=== PATIENT | female | born 1985 | race American Indian/Alaskan Native ===

== ENCOUNTER 2019-01-09 22:28 | Emergency (ER) | payer OTHER ==
[2019-01-09 23:55] LABS: Basophils % (Auto) 0.4 % (0.0-1.8); Eosinophils # (Auto) 0.2 K/mm3 (0.0-0.4); Hematocrit 33.3 % (30.3-42.9); Hemoglobin 11.4 gm/dl (10.1-14.3); Lymphocytes # (Auto) 2.2 K/mm3 (1.2-5.4); Lymphocytes % (Auto) 27.7 % (13.4-35.0); Mean Corpuscular HGB Conc 34 % (30-34); Mean Corpuscular Volume 91 fl (79-97); Monocytes # (Auto) 0.4 K/mm3 (0.0-0.8); Monocytes % (Auto) 5.3 % (0.0-7.3); Platelet Count 359 K/mm3 (140-440); Red Blood Count 3.66 M/mm3 (3.65-5.03); Red Cell Distribution Width 13.1 % (13.2-15.2)
[2019-01-10 00:09] LABS: Bilirubin,Urine NEG (Negative); Blood,Urine NEG (Negative); Color,Urine Straw (Yellow); Mucus,Urine FEW /HPF; Protein,Urine <15 mg/dL mg/dL (Negative); Urobilinogen,Urine < 2.0 mg/dL (<2.0); WBC,Urine < 1.0 /HPF (0.0-6.0)
--- NOTE | 2019-01-10 02:57 | Ultrasound Report ---
PROCEDURE: US OB >= 14 WEEKS FETUS TECHNIQUE: Real-time transabdominal sonography of the uterus, placenta, amniotic fluid, adnexa, and fetus was performed with image documentation. Measurements were obtained to determine age/size. M-mode Doppler was used to document heartbeat. ADDITIONAL GESTATION: None HISTORY: abdominal pain COMPARISONS: None. FINDINGS: MATERNAL: Uterus and cervix: The cervix is closed measures 5 cm in length. Adnexa and ovaries: There is a fibroid in the anterior myometrium this or centimeters. There is a fib roid in the lower uterine segment measuring up to 24 mm. The right ovary cyst measures up to 2 cm.. IUP: Single live intrauterine gestation. Position: Cephalic Placental position: Anterior, without previa . Amniotic fluid volume Normal. Cardiac activity: Regular rhythm at 142 bpm. ANATOMY: Face/lips/nose: Normal. Cerebral ventricles: Normal. Cisterna magna/cerebellum: Normal. Heart: Normal. Stomach: Normal. Umbilical cord: 3 vessel umbilical cord with normal insertion. Kidneys: Normal. Bladder: Normal. Spine: Spine is not well-visualized. Extremities: Normal. BIOMETRY: Biparietal diameter: 4.5 cm. Head circumference: 16.4 cm. abdominal circumference: 13.1 cm. Femur length: 3.1 cm. Ratio biometry: Normal . Estimated Weight: 322 grams Mean Gestational Age (composite criteria) based on today's measurements: 19 weeks 5 days. Estimated Due Date (earliest scan): 06/01/2019. IMPRESSION: Single live intrauterine gestation at 19 weeks 5 days. Estimated due date: 06/01/2019. No anatomic abnormality. This document is electronically signed by Chyna Kraus DO., January 10 2019 02:56:08 AM ET
--- NOTE | 2019-01-10 02:58 | Ultrasound Report ---
PROCEDURE: US OB TRANSVAGINAL TECHNIQUE: Real-time transabdominal and transvaginal sonography of the uterus, placenta, amniotic fl uid, adnexa, and fetus was performed with image documentation. Measurements were obtained to determin e age/size. M-mode Doppler was used to document heartbeat. ADDITIONAL GESTATION: None HISTORY: abdominal pain COMPARISONS: None. FINDINGS: MATERNAL: Uterus and cervix: The cervix is closed measures 5 cm in length. Adnexa and ovaries: There is a fibroid in the anterior myometrium this or centimeters. There is a fib roid in the lower uterine segment measuring up to 24 mm. The right ovary cyst measures up to 2 cm.. IUP: Single live intrauterine gestation. Position: Cephalic Placental position: Anterior, without previa . Amniotic fluid volume Normal. Cardiac activity: Regular rhythm at 142 bpm. ANATOMY: Face/lips/nose: Normal. Cerebral ventricles: Normal. Cisterna magna/cerebellum: Normal. Heart: Normal. Stomach: Normal. Umbilical cord: 3 vessel umbilical cord with normal insertion. Kidneys: Normal. Bladder: Normal. Spine: Spine is not well-visualized. Extremities: Normal. BIOMETRY: Biparietal diameter: 4.5 cm. Head circumference: 16.4 cm. abdominal circumference: 13.1 cm. Femur length: 3.1 cm. Ratio biometry: Normal . Estimated Weight: 322 grams Mean Gestational Age (composite criteria) based on today's measurements: 19 weeks 5 days. Estimated Due Date (earliest scan): 06/01/2019. IMPRESSION: Single live intrauterine gestation at 19 weeks 5 days. Estimated due date: 06/01/2019. No anatomic abnormality. This document is electronically signed by Chyna Kraus DO., January 10 2019 02:56:46 AM ET
--- NOTE | 2019-01-10 03:04 | Emergency Department Report ---
ED Abdominal Pain HPI - General Chief Complaint: Abdominal Pain Stated Complaint: /ABD PAIN/VAG DISCHARGE Time Seen by Provider: 01/10/19 01:49 Source: patient Mode of arrival: Ambulatory Limitations: No Limitations - Related Data Previous Rx's Medication Instructions Recorded Last Taken Type Acetaminophen 325 mg PO Q6H 12 Days #2 capsule 01/10/19 Unknown Rx Ondansetron [Zofran ODT TAB] 8 mg PO Q12HR #20 tab.rapdis 01/10/19 Unknown Rx Allergies Allergy/AdvReac Type Severity Reaction Status Date / Time beet Allergy Rash Verified 01/09/19 22:32 shrimp Allergy Rash Verified 01/09/19 22:32 ED Review of Systems ROS: Stated complaint: /ABD PAIN/VAG DISCHARGE Other details as noted in HPI ED Past Medical Hx - Past Medical History Previous Medical History?: No - Surgical History Past Surgical History?: No - Social History Smoking Status: Never Smoker Substance Use Type: None - Medications Home Medications: Home Medications Medication Instructions Recorded Confirmed Last Taken Type Acetaminophen 325 mg PO Q6H 12 Days #2 capsule 01/10/19 Unknown Rx Ondansetron [Zofran ODT TAB] 8 mg PO Q12HR #20 tab.rapdis 01/10/19 Unknown Rx ED Physical Exam - General Limitations: No Limitations ED Course Vital Signs 01/09/19 22:32 Temperature 98.5 F Pulse Rate 87 Respiratory 18 Rate Blood Pressure 150/77 O2 Sat by Pulse 100 Oximetry ED Medical Decision Making - Lab Data Result diagrams: 01/09/19 23:31 Critical care attestation.: If time is entered above; I have spent that time in minutes in the direct care of this critically ill patient, excluding procedure time. ED Disposition Clinical Impression: Qualifiers: Weeks of gestation: 19 weeks Qualified Code(s): Z3A.19 - 19 weeks gestation of Disposition: DC-01 TO HOME OR SELFCARE Is pt being admited?: No Does the pt Need Aspirin: No Condition: Stable Instructions: Abdominal Pain (ED) Prescriptions: Acetaminophen 325 mg PO Q6H 12 Days #2 capsule Ondansetron [Zofran ODT TAB] 8 mg PO Q12HR #20 tab.rapdis [facility]: [facility] [Primary Care Provider[facility] - 3-5 Days ELIZABETH BYNUM MD [Staff Physician] - 3-5 Days Forms: Work/School Release Form(ED) Time of Disposition: 03:04
[2019-01-10 03:20] VITALS: BP 121/80
== END 2019-01-10 03:23 | disposition home or self-care (01) ==
LOC: ED 22:28
DX: O26.892 Other specified pregnancy related conditions, second trimester (principal); R10.9 Unspecified abdominal pain; Z3A.19 19 weeks gestation of pregnancy; Z91.018 Allergy to other foods; Z91.013 Allergy to seafood
CPT/HCPCS: 36415; 76805; 76817; 81001; 84702; 85025; 86900; 86901